=== PATIENT | female | born 2000 | race Two or more races ===

== ENCOUNTER 2025-08-14 14:58 | Emergency (ER) | payer OTHER ==
[~2025-08-14] VITALS: Ht 147.3 cm; Wt 52.6 kg
[2025-08-14] MEDS ORDERED: CETIRIZINE HCL 5 MG/5 ML ML PO ONE (17:15)
[2025-08-14] MEDS ORDERED: ACETAMINOPHEN 500 MG GEL..CAP PO ONE ×2 (17:15→17:30)
[2025-08-14] MEDS ORDERED: GUAIFENESIN/DEXTROMETHORPHAN 100MG/10ML BLIST.PACK PO ONE ×2 (17:15→17:30)
[2025-08-14] MEDS ORDERED: CETIRIZINE HCL 5MG/5ML BLIST.PACK PO ONE (17:30)
[2025-08-14 18:02] LABS: BASO % 0.1 % (0.1-1.2); EOS # 0.00 (0.04-0.54); EOS % 0.0 % (0.7-7.0); LYMPH # 1.35 (1.18-3.74); LYMPH % 18.9 % (19.3-53.1); MEAN PLATELET VOLUME 12.40 fl (9.4-12.4); MONO # 0.44 (0.24-0.82); MONO % 6.2 % (4.7-12.5); NEUT # 5.34 (1.56-6.13); NEUT % 74.7 % (34.0-71.1); RED CELL DISTRIBUTION WIDTH 12.2 % (11.6-14.4)
[2025-08-14 18:22] LABS: COVID-19 AG NEGATIVE (NEGATIVE)
[2025-08-14] MEDS ORDERED: OSEL75CA PO (20:59)
[2025-08-14] MEDS ORDERED: TUSSIN DM 200-118 ML PO (20:59)
[2025-08-14] MEDS ORDERED: ZYRTEC10 MG PO (20:59)
[2025-08-14] MEDS ORDERED: OSELTAMIVIR PHOSPHATE 75 MG CAPSULE PO ONE ×2 (21:00→21:13)
== END 2025-08-14 21:20 | disposition home or self-care (01) ==
LOC: ER 14:58
PROVIDERS: General Practice
DX: J10.1 Influenza due to other identified influenza virus with other respiratory manifestations (principal); Z20.822 Contact with and (suspected) exposure to COVID-19